=== PATIENT | male | born 1955 | race Caucasian/White ===

== ENCOUNTER 2023-07-27 11:29 | Emergency (ER) | payer OTHER ==
[2023-07-27 11:40] VITALS: TEMP 98.3; BMI 27.9
[2023-07-27 14:45] LABS: BASO % 0.1 % (0-2.0); EOS % 2.2 % (0-4.5); HEMATOCRIT 45.5 % (35.4-49); HEMOGLOBIN 15.2 GM/dL (11.7-16.9); LYMPH % 12.5 % (8-40); MCH 31.8 pg (25.7-33.7); MCHC 33.4 g/dl (32.0-35.9); MEAN CELL VOLUME 95.3 fl (80-96); MEAN PLT VOLUME 8.2 fl (7.5-11.1); MONO % 7.4 % (3.8-10.2); NEUT % 77.8 % (42.8-82.8); PLATELET COUNT 224 10^3/uL (134-434); RBC 4.77 M/mm3 (4.00-5.60); RDW 13.6 % (11.9-15.9); WHITE BLOOD COUNT 7.6 K/mm3 (4.0-10.0)
[2023-07-27 15:07] LABS: POTASSIUM 4.3 mmol/L (3.5-5.1)
[2023-07-27 15:09] LABS: ALBUMIN 3.8 g/dl (3.4-5.0); CALCIUM 8.7 mg/dL (8.5-10.1)
[2023-07-27 15:14] LABS: CREATININE 0.7 mg/dL (0.55-1.3)
[2023-07-27 15:15] LABS: BILIRUBIN,TOTAL 0.4 mg/dL (0.2-1); TOT PROT 7.3 g/dl (6.4-8.2)
[2023-07-27 18:26] VITALS: BP 157/85; PULSE 77; RESP 19
== END 2023-07-27 18:31 | disposition home or self-care (01) ==
LOC: EDSEX 11:29 → JERFT 11:29 → JER 11:29
DX: R19.06 Epigastric swelling, mass or lump (principal); N28.89 Other specified disorders of kidney and ureter; R07.89 Other chest pain
CPT/HCPCS: 36415; 71046-TC-FY; 74176-TC; 80053; 84484; 85025; 93005; 93010; 99285-25